=== PATIENT | male | born 1965 | race Caucasian/White ===

== ENCOUNTER 2016-11-21 17:58 | Emergency (ER) | payer OTHER ==
[~2016-11-21] VITALS: Ht 182.9 cm; Wt 104.0 kg
[2016-11-21 18:02] VITALS: Ht 182.9 cm; Wt 104.0 kg
[2016-11-21 18:39] LABS: ADD SCAN DIFF NO
[2016-11-21 18:44] LABS: BASOPHILS % 0.4 % (0.0-2.0); EOSINOPHILS # 0.2 10^3/ul (0.0-0.5); EOSINOPHILS % 1.5 % (0.0-7.0); HEMOGLOBIN 15.1 g/dl (14.0-18.0); LYMPHOCYTES # 2.4 10^3/ul (0.8-2.9); LYMPHOCYTES % 24.6 % (15.0-51.0); MEAN CORPUSCULAR HEMOGLOBIN 29.3 pg (29.0-33.0); MEAN CORPUSCULAR HGB CONC 32.1 g/dl (32.0-37.0); MEAN CORPUSCULAR VOLUME 91.3 fl (82.0-101.0); MEAN PLATELET VOLUME 9.8 fl (7.4-10.4); MONOCYTES % 10.4 % (0.0-11.0); NEUTROPHIL # 6.2 10^3/ul (1.6-7.5); NEUTROPHILS % 62.9 % (39.0-77.0); PLATELET COUNT 243 10^3/UL (140-415); RED BLOOD COUNT 5.15 10^6/ul (4.70-6.10); RED CELL DISTRIBUTION WIDTH 13.1 % (11.5-14.5); WHITE BLOOD COUNT 9.9 10^3/ul (4.8-10.8)
[2016-11-21 18:49] LABS: ALBUMIN 4.1 g/dl (3.3-4.9); CHLORIDE 105 mmol/L (97-110)
[2016-11-21 18:50] LABS: SODIUM 144 mmol/L (135-144)
[2016-11-21 18:52] LABS: ALBUMIN/GLOBULIN RATIO 1.32; ALKALINE PHOSPHATASE 105 IU/L (42-121); ANION GAP 15 (8-16); ASPARTATE AMINO TRANSFERASE 43 IU/L (15-46); BILIRUBIN,INDIRECT 0.4 mg/dl (0-1.1); BILIRUBIN,TOTAL 0.4 mg/dl (0.2-1.3); BLOOD UREA NITROGEN 19 mg/dl (7-20); CARBON DIOXIDE 28 mmol/L (21-31); CREATININE 0.96 mg/dl (0.61-1.24); TOTAL PROTEIN 7.2 g/dl (6.1-8.1)
[2016-11-21 18:53] LABS: ALANINE AMINOTRANSFERASE 38 IU/L (13-69); CALCIUM 9.1 mg/dl (8.4-10.2); GLUCOSE 95 mg/dl (70-220)
[2016-11-21 18:56] LABS: ACETAMINOPHEN < 10.0 ug/ml (10.0-30.0); SALICYLATE < 1.0 mg/dl (5.0-30.0)
[2016-11-21 18:57] LABS: ETHANOL < 10.0 mg/dl
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
[2016-11-21 20:13] LABS: ADD UMIC YES; URINE BILIRUBIN (Dip) NEGATIVE (NEGATIVE); URINE BLOOD (Dip) 2+ (NEGATIVE); URINE COLOR LT. YELLOW (YELLOW); URINE GLUCOSE (Dip) NEGATIVE (NEGATIVE); URINE KETONES (Dip) NEGATIVE (NEGATIVE); URINE LEUKOCYTE ESTERASE (Dip) NEGATIVE (NEGATIVE); URINE NITRITE (Dip) NEGATIVE (NEGATIVE); URINE TOTAL PROTEIN (Dip) NEGATIVE (NEGATIVE); URINE UROBILINOGEN (Dip) 0.2 E.U./dL (0.1-1.0)
[2016-11-21 20:27] LABS: BARBITURATES Negative (NEGATIVE); BENZODIAZEPINES Negative (NEGATIVE); CANNABINOIDS Negative (NEGATIVE)
[2016-11-21 20:28] LABS: COCAINE Positive (NEGATIVE)
[2016-11-21 20:30] LABS: OPIATES Negative (NEGATIVE)
[2016-11-22 07:55] VITALS: BP 118/79; PULSE 100; RESP 20; TEMP 98.3
== END 2016-11-22 07:58 ==
LOC: E/R 17:58
DX: F23 Brief psychotic disorder (principal); F17.210 Nicotine dependence, cigarettes, uncomplicated; R40.2142 Coma scale, eyes open, spontaneous, at arrival to emergency department; R40.2242 Coma scale, best verbal response, confused conversation, at arrival to emergency department; R40.2362 Coma scale, best motor response, obeys commands, at arrival to emergency department
CPT/HCPCS: 80053; 80306; 80307; 81001; 81003; 85025

== ENCOUNTER 2017-02-24 17:26 | Emergency (ER) | payer OTHER ==
[~2017-02-24] VITALS: Ht 165.1 cm; Wt 90.0 kg
[2017-02-24 17:35] VITALS: Ht 165.1 cm; Wt 90.0 kg
[2017-02-24] MEDS ORDERED: LOPERAMIDE 2 MG CAP PO ONE (22:30)
[2017-02-24 23:05] LABS: ADD SCAN DIFF NO
[2017-02-24 23:09] LABS: BASOPHILS % 0.3 % (0.0-2.0); EOSINOPHILS # 0.2 10^3/ul (0.0-0.5); EOSINOPHILS % 3.3 % (0.0-7.0); HEMATOCRIT 44.1 % (42.0-52.0); HEMOGLOBIN 14.6 g/dl (14.0-18.0); LYMPHOCYTES # 2.1 10^3/ul (0.8-2.9); MEAN CORPUSCULAR HEMOGLOBIN 30.7 pg (29.0-33.0); MEAN CORPUSCULAR HGB CONC 33.1 g/dl (32.0-37.0); MEAN CORPUSCULAR VOLUME 92.6 fl (82.0-101.0); MEAN PLATELET VOLUME 9.9 fl (7.4-10.4); MONOCYTE # 0.6 10^3/ul (0.3-0.9); NEUTROPHIL # 3.8 10^3/ul (1.6-7.5); NEUTROPHILS % 56.3 % (39.0-77.0); PLATELET COUNT 228 10^3/UL (140-415); RED BLOOD COUNT 4.76 10^6/ul (4.70-6.10); RED CELL DISTRIBUTION WIDTH 12.3 % (11.5-14.5); WHITE BLOOD COUNT 6.8 10^3/ul (4.8-10.8)
--- NOTE | 2017-02-24 23:26 | RADRPT ---
PROCEDURE: XR Chest. CLINICAL INDICATION: Cough. TECHNIQUE: Single frontal chest x-ray. COMPARISON: None available. FINDINGS: The cardiomediastinal silhouette is unremarkable. Aortic atherosclerotic vascular calcifications are identified. Mild bibasilar atelectasis is noted. No pneumothorax, pleural effusion or consolidation is seen. No acute osseous abnormality is noted. IMPRESSION: 1. No acute cardiopulmonary abnormality. 2. Mild bibasilar atelectasis. 3. Aortic atherosclerosis. RPTAT: HFN .Mirta Red MD, Date Time Electronically viewed and signed by .Mirta Red MD, on 02/24/2017 23:26 .N/
[2017-02-24 23:30] LABS: ALANINE AMINOTRANSFERASE 26 IU/L (13-69); ALBUMIN 4.4 g/dl (3.3-4.9); ALBUMIN/GLOBULIN RATIO 1.91; ALKALINE PHOSPHATASE 98 IU/L (42-121); ANION GAP 12 (8-16); ASPARTATE AMINO TRANSFERASE 19 IU/L (15-46); BILIRUBIN,INDIRECT 0.3 mg/dl (0-1.1); BILIRUBIN,TOTAL 0.3 mg/dl (0.2-1.3); BLOOD UREA NITROGEN 15 mg/dl (7-20); CARBON DIOXIDE 26 mmol/L (21-31); CHLORIDE 108 mmol/L (97-110); CREATININE 0.96 mg/dl (0.61-1.24); GLUCOSE 94 mg/dl (70-220); POTASSIUM 3.9 mmol/L (3.5-5.1); SODIUM 142 mmol/L (135-144); TOTAL PROTEIN 6.7 g/dl (6.1-8.1)
[2017-02-24 23:31] LABS: ACETAMINOPHEN < 10.0 ug/ml (10.0-30.0); ETHANOL < 10.0 mg/dl; SALICYLATE < 1.0 mg/dl (5.0-30.0)
--- NOTE | 2017-02-25 01:01 | ERA ---
ER Documentation Chief Complaint Date/Time DATE: 02/25/17 Chief Complaint I need psychiatric medication HPI The patient is a 51-year-old male, presenting to the ER because he wants psychiatric medication. He was hospitalized in a psychiatric hospital a month ago. However he did not take any medication when he was discharged. He complains of auditory hallucination, denies homicidal or suicidal ideation, denies headache, neck pain, chest pain, dyspnea. He complains of diarrhea for the last couple days, denies any hematochezia, denies nausea, vomiting, dysuria. He smokes, drinks and does illicit drug Past medical history: History of psychosis Past surgical history: Multiple orthopedic surgery many years ago ROS All systems reviewed and are negative except as per history of present illness. Medications Home Meds Unable to Obtain Active Prescriptions or Reported Meds Allergies Allergies: Coded Allergies: No Known Drug Allergies (Unverified Allergy, Unknown, 02/24/17) PMhx/Soc History of Surgery: Yes ("right arm surgery") Anesthesia Reaction: No Hx Neurological Disorder: No Hx Respiratory Disorders: No Hx Cardiac Disorders: No Hx Psychiatric Problems: Yes (SCHIZOPHRENIA) Hx Miscellaneous Medical Probl: No Hx Alcohol Use: Yes ("once every 2 days",last used two night ago 1 beer) Hx Substance Use: No Hx Tobacco Use: Yes Smoking Status: Current every day smoker Physical Exam Vitals Vital Signs Date Time Temp Pulse Resp B/P Pulse Ox O2 Delivery O2 Flow Rate FiO2 02/24/17 22:03 88 18 131/95 100 Room Air 02/24/17 17:35 98.1 97 18 129/83 99 Physical Exam Const: No acute distress. Head: Atraumatic. Eyes: Normal Conjunctiva. ENT: Normal External Ears, Nose and Mouth. Neck: Full range of motion. No meningismus. Resp: Clear to auscultation bilaterally. Cardio: Regular rate and rhythm. Abd: Soft, non distended, normal bowel sounds, non tender. Skin: No petechiae or rashes. Back: No midline or flank tenderness. Ext: No cyanosis, or edema. Neur: Awake and alert. No focal deficit Psych: Normal Mood and Affect. Result Diagram: 02/24/17 2300 02/24/17 2300 Results 24 hrs Laboratory Tests Test 02/24/17 23:00 White Blood Count 6.810^3/ul Red Blood Count 4.7610^6/ul Hemoglobin 14.6g/dl Hematocrit 44.1% Mean Corpuscular Volume 92.6fl Mean Corpuscular Hemoglobin 30.7pg Mean Corpuscular Hemoglobin Concent 33.1g/dl Red Cell Distribution Width 12.3% Platelet Count 35667^3/UL Mean Platelet Volume 9.9fl Neutrophils % 56.3% Lymphocytes % 31.0% Monocytes % 9.0% Eosinophils % 3.3% Basophils % 0.3% Nucleated Red Blood Cells % 0.0/100WBC Neutrophils # 3.810^3/ul Lymphocytes # 2.110^3/ul Monocytes # 0.610^3/ul Eosinophils # 0.210^3/ul Basophils # 0.010^3/ul Nucleated Red Blood Cells # 0.010^3/ul Sodium Level 142mmol/L Potassium Level 3.9mmol/L Chloride Level 108mmol/L Carbon Dioxide Level 26mmol/L Anion Gap 12 Blood Urea Nitrogen 15mg/dl Creatinine 0.96mg/dl Glucose Level 94mg/dl Calcium Level 9.0mg/dl Total Bilirubin 0.3mg/dl Direct Bilirubin 0.00mg/dl Indirect Bilirubin 0.3mg/dl Aspartate Amino Transf (AST/SGOT) 19IU/L Alanine Aminotransferase (ALT/SGPT) 26IU/L Alkaline Phosphatase 98IU/L Total Protein 6.7g/dl Albumin 4.4g/dl Globulin 2.30g/dl Albumin/Globulin Ratio 1.91 Lipase 62U/L Salicylates Level < 1.0mg/dl Acetaminophen Level < 10.0ug/ml Ethyl Alcohol Level < 10.0mg/dl Current Medications Medications (Trade) Dose Ordered Sig/Shanta Route PRN Reason Start Time Stop Time Status Last Admin Dose Admin Loperamide HCl (Imodium Cap) 4 mg ONCE ONCE PO 02/24/17 22:30 02/24/17 22:31 DC 02/24/17 23:00 Procedures/[place] [id number] Radiology Main Line: [phone] DIAGNOSTIC IMAGING REPORT Patient: OMER DAWSON : 1965 Age: 51 Sex: M MR #: [id number] DOS: 02/24/17 0000 Ordering MD: GALILEO LUGO MD Location: E/R Room/Bed: PROCEDURE: XR Chest. CLINICAL INDICATION: Cough. TECHNIQUE: Single frontal chest x-ray. COMPARISON: None available. FINDINGS: The cardiomediastinal silhouette is unremarkable. Aortic atherosclerotic vascular calcifications are identified. Mild bibasilar atelectasis is noted. No pneumothorax, pleural effusion or consolidation is seen. No acute osseous abnormality is noted. IMPRESSION: 1. No acute cardiopulmonary abnormality. 2. Mild bibasilar atelectasis. 3. Aortic atherosclerosis. RPTAT: HFN .Mirta Red MD, Date Time Electronically viewed and signed by .Mirta Red MD, on 02/24/2017 23: 26 .N/ CC: GALILEO LUGO MD MEDICAL MAKING DECISION: The patient is a 51-year-old male, presenting with acute psychosis, diarrhea of unclear etiology. He was treated with Imodium 4 mg p.o. for diarrhea with good response. The differential diagnoses considered include but are not limited to psychosis, drug-induced psychosis, decompensated psychiatric illness, anxiety attack, panic attack The differential diagnoses for acute diarrhea considered include but are not limited to drug withdrawal, gastroenteritis, colitis cholelithiasis, cholecystitis, cystitis, pancreatitis, hepatitis, gastritis, peptic ulcer disease, gastric ulcer, appendicitis, diverticulitis, cholangitis, choledocholithiasis, partial small bowel obstruction. Departure Diagnosis: Primary Impression: Psychosis Additional Impression: Diarrhea Condition: Stable Comments He is awaiting for telepsychiatrist evaluation The patient's blood pressure was elevated (>120/80) but appears stable without evidence of hypertension emergency or urgency. The patient was counseled about the risks of hypertension and urged to pursue outpatient monitoring and therapy within a week with their primary care physician. GALILEO LUGO MD Feb 25, 2017 01:00
--- NOTE | 2017-02-25 02:28 | PSY ---
Date/Time of Note Date/Time of Note DATE: 02/25/17 TIME: 02:09 Psychiatric Subjective Eval Consent Pt consented to telemedicine: Yes Subjective Evaluation Patient location: emergency Chief Complaint: AP, SOB, WEAKNESS Reason for consult: confusion History of present illness patient is a 51 yo male with PPH of schizophrenia homeless who came to the ER due to GI symptoms, he was disorganized and confused in the ER so psych consultation was requested. Patient is alert and oriented to time , place and situation, he states that he came due to abdominal and groin pain. he states that he has been feeling depressed, hopeless and helpless for weeks due to being homeless and having chronic pain, he is disorganized in his speech , answering my questions with illogical answers, denies feeling suicidal but states that he hears voices telling him to kill himself, he appears to be paranoid and anxious, states that he has been having problem sleeping for days, denies any HI, denies any drug or alcohol abuse. Past psychiatric history past suicidal attempt yes Hospitalization: yes Family History denies Medical history Problems Medical Problems: (1) Acute psychosis Status: Acute (2) Diarrhea Status: Acute (3) Psychosis Status: Acute Allergies: Coded Allergies: No Known Drug Allergies (Unverified Allergy, Unknown, 02/24/17) Substance Abuse Substance use: No known substance abuse Social History Marital status: single Level of education: hs DPA/Conservatorship: No Occupation/Penitentiary: unemployed Psychiatric Objective Eval Review of Systems: Review of Systems: Not Applicable Physical Examination: Physical Examination: Applicable Sleep: Insomnia Appetite: Decreased Energy: Decreased Interest: Decreased Mental Status Examination: Appearance: Disheveled Eye Contact: Good Psychomotor Activity: Normal Behavior: Cooperative Speech: Disorganized AFFECT: Depressed Mood: Depressed Though Process: Linear, Loose Thought Content: Hallucinations Suicidal: No Homicidal: No On 72 hour hold: No Cognition: Alert Insight: Impared Judgement: Impared Attention Span: Distractible Laboratory Results Laboratory Tests Test 02/24/17 23:00 White Blood Count 6.810^3/ul Red Blood Count 4.7610^6/ul Hemoglobin 14.6g/dl Hematocrit 44.1% Mean Corpuscular Volume 92.6fl Mean Corpuscular Hemoglobin 30.7pg Mean Corpuscular Hemoglobin Concent 33.1g/dl Red Cell Distribution Width 12.3% Platelet Count 95951^3/UL Mean Platelet Volume 9.9fl Neutrophils % 56.3% Lymphocytes % 31.0% Monocytes % 9.0% Eosinophils % 3.3% Basophils % 0.3% Nucleated Red Blood Cells % 0.0/100WBC Neutrophils # 3.810^3/ul Lymphocytes # 2.110^3/ul Monocytes # 0.610^3/ul Eosinophils # 0.210^3/ul Basophils # 0.010^3/ul Nucleated Red Blood Cells # 0.010^3/ul Sodium Level 142mmol/L Potassium Level 3.9mmol/L Chloride Level 108mmol/L Carbon Dioxide Level 26mmol/L Anion Gap 12 Blood Urea Nitrogen 15mg/dl Creatinine 0.96mg/dl Glucose Level 94mg/dl Calcium Level 9.0mg/dl Total Bilirubin 0.3mg/dl Direct Bilirubin 0.00mg/dl Indirect Bilirubin 0.3mg/dl Aspartate Amino Transf (AST/SGOT) 19IU/L Alanine Aminotransferase (ALT/SGPT) 26IU/L Alkaline Phosphatase 98IU/L Total Protein 6.7g/dl Albumin 4.4g/dl Globulin 2.30g/dl Albumin/Globulin Ratio 1.91 Lipase 62U/L Salicylates Level < 1.0mg/dl Acetaminophen Level < 10.0ug/ml Ethyl Alcohol Level < 10.0mg/dl Assessment and Plan Assessment/Diagnosis [place] I: schizophrenia, chronic paranoid type [place] II: deferre [place] III: as per record [place] IV: homeless [place] V: gaf 25 Recommendation/Plan Medication Management risperdal 1 mg po bid Follow-up/Disposition Patient needs unvoluntary admission due to danger to self In my opinion, patient currently MEETS criterion for inpatient care and CANNOT be safely treated at a lower level of care today as evidenced by the following risk factors: Previous suicide attempt or severe self-destructive behavior. Intense feelings of hopelessness and/or lack of future orientation. Non-Compliance with Outpatient Treatment. Command hallucinations with violent content. Chronic Pain. Significant recent DETERIORATION in function, behavior and thought processes [id number] Recommendation: OLEG Gilbert MD Feb 25, 2017 02:28
[2017-02-25 06:56] VITALS: BP 120/79; PULSE 78; RESP 16; TEMP 98.4
== END 2017-02-25 07:02 ==
LOC: E/R 17:26
DX: F29 Unspecified psychosis not due to a substance or known physiological condition (principal); R19.7 Diarrhea, unspecified; F17.210 Nicotine dependence, cigarettes, uncomplicated; R40.2252 Coma scale, best verbal response, oriented, at arrival to emergency department; R40.2142 Coma scale, eyes open, spontaneous, at arrival to emergency department; R40.2362 Coma scale, best motor response, obeys commands, at arrival to emergency department
CPT/HCPCS: 36415; 71010; 80053; 80306; 83690; 85025

== ENCOUNTER 2018-07-14 17:28 | Emergency (ER) | END 2018-07-15 17:02 ==

== ENCOUNTER 2018-12-20 20:19 | Emergency (ER) | payer SELFPAY | END 2018-12-20 20:58 | disposition left against medical advice (07) | LOC: E/R 20:19 | DX: Z53.21 Procedure and treatment not carried out due to patient leaving prior to being seen by health care provider (principal) ==

== ENCOUNTER 2019-01-20 20:43 | Emergency (ER) | payer OTHER ==
[~2019-01-20] VITALS: Ht 188 cm; Wt 112.4 kg
[2019-01-20 21:03] VITALS: BP 162/94; PULSE 96; RESP 18; Ht 188 cm; Wt 112.4 kg
[2019-01-20] MEDS ORDERED: RSP.5T PO (22:02)
[2019-01-20] MEDS ORDERED: QUET25TA PO (22:02)
--- NOTE | 2019-01-20 23:03 | ERD ---
ER Documentation Chief Complaint Chief Complaint states needs med refill on his psyche meds, also c/o pain both legs HPI Patient is a 53-year-old male with psychiatric disease who presents saying that he needs a refill of his Risperdal and Seroquel. He does not know what doses he takes. He said that he ran out of these medicines 2 weeks ago. He is complaining of bilateral leg pain as well. He has no suicidal or homicidal ideation at this time. ROS All systems reviewed and are negative except as per history of present illness. Medications Home Meds Active Scripts Quetiapine Fumarate* (Seroquel*) 25 Mg Tablet, 25 MG PO DAILY, #30 TAB Prov:IGOR ALBARADO MD 01/20/19 Risperidone* (Risperdal*) 0.5 Mg Tablet, 0.5 MG PO DAILY, #14 TAB Prov:IGOR ALBARADO MD 01/20/19 Allergies Allergies: Coded Allergies: No Known Drug Allergies (Unverified Allergy, Unknown, 02/24/17) PMhx/Soc History of Surgery: Yes ("right arm surgery") Anesthesia Reaction: No Hx Neurological Disorder: No Hx Respiratory Disorders: No Hx Cardiac Disorders: No Hx Psychiatric Problems: Yes (AUDITORY SCHIZOPHRENIA) Hx Miscellaneous Medical Probl: No Hx Alcohol Use: Yes ("once every 2 days",last used two night ago 1 beer) Hx Substance Use: No Hx Tobacco Use: Yes Smoking Status: Current every day smoker FmHx Family History: No diabetes Physical Exam Vitals Vital Signs Date Temp Pulse Resp B/P (MAP) Pulse Ox O2 O2 Flow FiO2 Time Delivery Rate 01/20/19 97.9 96 18 162/94 97 21:03 (116) Physical Exam Const: No acute distress Head: Atraumatic Eyes: Normal Conjunctiva ENT: Normal External Ears, Nose and Mouth. Neck: Full range of motion. No meningismus. Resp: Clear to auscultation bilaterally Cardio: Regular rate and rhythm, no murmurs Abd: Soft, non tender, non distended. Normal bowel sounds Skin: No petechiae or rashes Back: No midline or flank tenderness Ext: No cyanosis, or edema Neur: Awake and alert Psych: Flat affect without suicidal or homicidal ideation Procedures/MDM Smoking Cessation Therapy: Pt. was lectured for greater than 3 minutes on the health risks of continued smoking and the benefits of cessation. Patient is a 53-year-old male who presents with a need for refill of Risperdal and Seroquel. As he does not know his medications I will give him the lowest doses of both medications for a 2-week course. The patient will need to follow- up closely with his primary doctor and can return for any worsening symptoms. I do not believe requires a 5150 hold at this time. I believe his leg pain is chronic and does not require further work-up at this time. Departure Diagnosis: Primary Impression: Encounter for medication refill Condition: Fair Patient Instructions: Taking Medicine Safely Referrals: [facility] YOU HAVE RECEIVED A MEDICAL SCREENING EXAM AND THE RESULTS INDICATE THAT YOU DO NOT HAVE A CONDITION THAT REQUIRES URGENT TREATMENT IN THE EMERGENCY DEPARTMENT. FURTHER EVALUATION AND TREATMENT OF YOUR CONDITION CAN WAIT UNTIL YOU ARE SEEN IN YOUR DOCTORS OFFICE WITHIN THE NEXT 1-2 DAYS. IT IS YOUR RESPONSIBILITY TO MAKE AN APPOINTMENT FOR FOLOW-UP CARE. IF YOU HAVE A PRIMARY DOCTOR --you should call your primary doctor and schedule an appointment IF YOU DO NOT HAVE A PRIMARY DOCTOR YOU CAN CALL OUR PHYSICIAN REFERRAL HOTLINE AT IF YOU CAN NOT AFFORD TO SEE A PHYSICIAN YOU CAN CHOSE FROM THE FOLLOWING [facility] [address] [facility]. [facility] [address] [facility]. [facility] [address] [facility] [facility] [address] [facility]. [facility] [address] [facility]. [facility]. [address] Additional Instructions: Call your primary care doctor TOMORROW for an appointment during the next 1 WEEK.Tell the workers compensation legal secretary that you were referred from this facility.See the doctor sooner or return here if your condition worsens before your appointment time. IGOR ALBARADO MD January 20, 2019 23:03
== END 2019-01-20 22:06 | disposition home or self-care (01) ==
LOC: FTE 20:43
DX: Z76.0 Encounter for issue of repeat prescription (principal); F17.210 Nicotine dependence, cigarettes, uncomplicated
CPT/HCPCS: 99283

== ENCOUNTER 2019-02-10 21:32 | Emergency (ER) | payer OTHER ==
[~2019-02-10] VITALS: Ht 188 cm; Wt 110.8 kg
[~2019-02-10 21:32] MED LIST: QUET25TA PO; RSP.5T PO
[2019-02-10 21:39] VITALS: BP 140/95; PULSE 88; RESP 16; Ht 188 cm; Wt 110.8 kg
--- NOTE | 2019-02-10 21:54 | ERD ---
ER Documentation Chief Complaint Chief Complaint pt reports he is out of Ibuprofen 800mg HPI There is a 53-year-old male presents to emergency department for medication refill of his Motrin 800 mg as needed and Risperdal 2 mg twice a day. No other complaints. Denies headache, head injury, loss of consciousness, dizziness, neck pain, neck stiffness, throat pain, difficulty swallowing, difficulty breathing lying flat, shoulder pain, chest pain, back pain, abdominal pain, nausea, vomiting, constipation, diarrhea, urinary symptoms, loss of bowel and bladder control, t rauma, injury, falls, difficulty walking due to pain, numbness or tingling sensation, calf pain, recent travel, recent major surgery in the last 3 weeks, calf pain, recent long travel, recent exposure to any illness, recent antibiotic use in the last 3 months, fever, chills, seizures. Past medical history: Surgical history: Social: Denies smoking, use of alcoholic beverages, use of illegal drugs. ROS All systems reviewed and are negative except as per history of present illness. Medications Home Meds Active Scripts Risperidone* (Risperidone*) 0.5 Mg Tablet, 0.5 MG PO BID, #14 TAB Prov:PASILABANABEBEAR F 02/10/19 Omeprazole* (Omeprazole*) 40 Mg Capsule.dr, 40 MG PO DAILY, #30 CAP Prov:PASILABAN,ABEBEAR F 02/10/19 Ibuprofen* (Motrin*) 800 Mg Tab, 800 MG PO Q6H PRN for PAIN AND OR ELEVATED T EMP, #30 TAB Prov:PASILABANABEBEAR F 02/10/19 Quetiapine Fumarate* (Seroquel*) 25 Mg Tablet, 25 MG PO DAILY, #30 TAB Prov:IGOR ALBARADO MD 01/20/19 Risperidone* (Risperdal*) 0.5 Mg Tablet, 0.5 MG PO DAILY, #14 TAB Prov:IGOR ALBARADO MD 01/20/19 Allergies Allergies: Coded Allergies: No Known Drug Allergies (Unverified Allergy, Unknown, 02/24/17) PMhx/Soc History of Surgery: Yes ("right arm surgery") Anesthesia Reaction: No Hx Neurological Disorder: No Hx Respiratory Disorders: No Hx Cardiac Disorders: No Hx Psychiatric Problems: Yes (AUDITORY SCHIZOPHRENIA) Hx Miscellaneous Medical Probl: No Hx Alcohol Use: Yes ("once every 2 days",last used two night ago 1 beer) Hx Substance Use: No Hx Tobacco Use: Yes Physical Exam Vitals Vital Signs Date Temp Pulse Resp B/P (MAP) Pulse Ox O2 O2 Flow FiO2 Time Delivery Rate 02/10/19 98.2 88 16 140/95 98 21:39 (110) Physical Exam Const: No acute distress Head: Atraumatic Eyes: Normal Conjunctiva ENT: Normal External Ears, Nose and Mouth. Neck: Full range of motion. No meningismus. Resp: Clear to auscultation bilaterally Cardio: Regular rate and rhythm, no murmurs Abd: Soft, non tender, non distended. Normal bowel sounds Skin: No petechiae or rashes Back: No midline or flank tenderness Ext: No cyanosis, or edema Neur: Awake and alert Psych: Normal Mood and Affect. Denies auditory/visual hallucinations/delusions. Not suicidal. Not homicidal. Has the capacity to decide for himself. Has good support system at home. Procedures/MDM Diagnostic tests: Not applicable. Treatment: Not applicable. Re-evaluation: Not applicable. Differential diagnosis I have low suspicion for suicidal edition, homicidal ideation, 5150. Final diagnosis: Medication refill. Prescription: Motrin 800 mg. Omeprazole. Risperidone. Follow-up with PCP in the next 24-48 hours. Follow-up with psychiatrist in the next 3 to 5 days. Come back here in the emergency department for any new symptoms or any worsening symptoms. All questions and concerns were answered. Patient and family members verbalized understanding and agreed with plan of care. Hemodynamically stable on discharge. Departure Diagnosis: Primary Impression: Encounter for medication refill Condition: Stable Additional Instructions: Follow-up with PCP in the next 24-48 hours. Follow-up with psychiatrist in the next 3 to 5 days. Come back here in the emergency department for any new symptoms or any worsening symptoms. JOSE LOCKWOOD February 10, 2019 21:54
[2019-02-10] MEDS ORDERED: IBUP800T48 PO (21:55)
[2019-02-10] MEDS ORDERED: RISP0.5T3 PO (21:55)
[2019-02-10] MEDS ORDERED: OMEP40CA6 PO (21:55)
== END 2019-02-10 22:22 | disposition home or self-care (01) ==
LOC: FTE 21:32
DX: Z76.0 Encounter for issue of repeat prescription (principal); Z87.891 Personal history of nicotine dependence
CPT/HCPCS: 99281

== ENCOUNTER 2019-02-20 13:51 | Emergency (ER) | payer OTHER ==
[~2019-02-20] VITALS: Ht 182.9 cm; Wt 109.3 kg
[~2019-02-20 13:51] MED LIST changes: +IBUP800T48 PO; +OMEP40CA6 PO; +RISP0.5T3 PO
[2019-02-20 13:57] VITALS: BP 153/90; PULSE 104; RESP 18; Ht 182.9 cm; Wt 109.3 kg
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
== END 2019-02-20 16:44 | disposition home or self-care (01) ==
LOC: FTE 13:51
DX: F29 Unspecified psychosis not due to a substance or known physiological condition (principal); F17.210 Nicotine dependence, cigarettes, uncomplicated; Z59.0 Homelessness
CPT/HCPCS: 99283